=== PATIENT | female | born 1990 | race Caucasian/White ===

== ENCOUNTER → 2021-06-13 12:09 | Outpatient (CLI) | payer MEDICAID, SELFPAY ==
[2021-06-13 13:25] LABS: Hematocrit 39.9 % (37-47); Hemoglobin 13.3 g/dL (12.0-15.0); Mean Corp Hgb Conc 33.3 g/dL (32-36); Mean Corpuscular Hgb 28.9 pg (27.0-32.0); Mean Corpuscular Volume 86.6 fL (81-99); Mean Platelet Vol. 10.4 fl (6.2-12.0); Platelet Count 259 K/mm3 (150-450); RBC Distribution Width CV 13.7 % (11.6-14.6); RBC Distribution Width SD 43.1 fl (35.1-43.9); Red Blood Count 4.61 M/mm3 (4.2-5.4); White Blood Count 6.7 K/mm3 (4.4-11.0)
[2021-06-13 13:40] LABS: Progesterone Level 0.41 ng/mL (See Comment)
[2021-06-13 13:41] LABS: hCG Titer Quant., Serum < 1 mIU/mL (1-3)
[2021-06-13 13:44] LABS: Follicle Stimulating Hormone 4.8 mIU/mL; Luteinizing Hormone 3.9 mIU/mL; Prolactin 6.5 ng/mL; T4 Free Direct 0.96 ng/dL (0.76-1.46)
[2021-06-13 13:49] LABS: Hemoglobin A1c 5.9 % (3.8-5.6)
[2021-06-18 12:08] LABS: DHEA Sulfate 78.3 ug/dL (84.8-378.0)
[2021-06-19 12:50] LABS: Testosterone Free 1.9 pg/mL (0.0-4.2)
== END ==
PROVIDERS: Visit Provider Obstetrics & Gynecology
DX: N91.2 Amenorrhea, unspecified (principal)
CPT/HCPCS: 36415; 82627; 83001; 83002; 83036; 84144; 84146; 84402; 84439; 84443; 84702; 85027; 82626